=== PATIENT | female | born 1980 | race Caucasian/White ===

== ENCOUNTER → 2019-04-01 | Outpatient (CLI) | payer OTHER ==
[2019-04-01 07:34] LABS: BASOPHIL % 0.7 % (0.0-0.2); EOSINOPHIL # 0.2 10^3/uL (0.0-0.2); EOSINOPHIL % 3.8 % (0.0-5.0); HEMOGLOBIN 14.7 g/dL (12.0-15.0); LYMPHOCYTES # 2.2 10^3/uL (1.0-4.8); LYMPHOCYTES % 38.9 % (24.0-44.0); MEAN CELL HGB 32.9 pg (26-34); MEAN CELL HGB CONCENTRATION 34.9 g/dL (33-37); MEAN CORP VOLUME 94.2 fL (78-100); MEAN PLATELET VOLUME 10.3 fL (7.8-11.0); MONOCYTES # 0.5 10^3/uL (0.3-0.8); MONOCYTES % 9.7 % (5.0-12.0); NEUTROPHIL # 2.6 10^3/uL (1.8-7.7); NEUTROPHILS % 46.7 % (41.0-85.0); RED CELL DISTRIBUTION WIDTH 12.9 % (11.5-14.5); WHITE BLOOD CELL 5.6 10^3/uL (4.5-11.0)
[2019-04-01 08:04] LABS: CARBON DIOXIDE 27.4 mmol/L (20.0-32)
== END | disposition home or self-care (01) ==
LOC: LAB 07:18
PROVIDERS: ATTEND Nurse Practitioner Family
DX: E03.9 Hypothyroidism, unspecified (principal); R73.9 Hyperglycemia, unspecified; R79.89 Other specified abnormal findings of blood chemistry
CPT/HCPCS: 36415; 80053; 80061; 83036; 84439; 84443; 85025

== ENCOUNTER → 2019-08-08 | Outpatient (CLI) | payer OTHER ==
[2019-08-08 10:21] LABS: BASOPHIL % 0.5 % (0.0-0.2); EOSINOPHIL # 0.2 10^3/uL (0.0-0.2); EOSINOPHIL % 2.9 % (0.0-5.0); HEMOGLOBIN 14.4 g/dL (12.0-15.0); LYMPHOCYTES % 34.5 % (24.0-44.0); MEAN CELL HGB 32.7 pg (26-34); MEAN CELL HGB CONCENTRATION 33.8 g/dL (33-37); MEAN CORP VOLUME 96.6 fL (78-100); MEAN PLATELET VOLUME 10.7 fL (7.8-11.0); MONOCYTES # 0.5 10^3/uL (0.3-0.8); MONOCYTES % 7.8 % (5.0-12.0); NEUTROPHIL # 3.2 10^3/uL (1.8-7.7); NEUTROPHILS % 53.8 % (41.0-85.0); RED CELL DISTRIBUTION WIDTH 12.2 % (11.5-14.5); WHITE BLOOD CELL 5.9 10^3/uL (4.5-11.0)
== END | disposition home or self-care (01) ==
LOC: LAB 09:59
PROVIDERS: ATTEND Obstetrics & Gynecology
DX: Z01.419 Encounter for gynecological examination (general) (routine) without abnormal findings (principal); Z13.0 Encounter for screening for diseases of the blood and blood-forming organs and certain disorders involving the immune mechanism
CPT/HCPCS: 36415; 85025

== ENCOUNTER → 2019-08-20 | Outpatient (CLI) | payer OTHER ==
--- NOTE | 2019-08-20 12:09 | DIREP ---
PROCEDURE:Digital Screening Mammogram TECHNIQUE:MLO and CC digital images of each breast are provided. Push-pull implant views are also provided. Computer Assisted Detection (CAD) was utilized. COMPARISON:None. INDICATIONS:SCREENING BASELINE/IMPLANTS BREAST COMPOSITION:There are scattered areas of fibroglandular density. FINDINGS:There are no grouped microcalcifications, masses, or architectural distortions to suggest malignancy. Bilateral breast implants are noted, and they appear to be intact. IMPRESSION:No mammographic evidence of malignancy. RECOMMENDATIONS:Routine Screening Mammography per [employer] guidelines. OVERALL FINAL ASSESSMENT:BI-RADS 1 - Negative Mammogram Note: This facility participates in a mammography screening patient reminder system. Dictated by: Chiki Pickard M.D. on 08/20/2019 at 12:06 PM
== END | disposition home or self-care (01) ==
LOC: RAD 09:52
PROVIDERS: ATTEND Obstetrics & Gynecology
DX: Z12.31 Encounter for screening mammogram for malignant neoplasm of breast (principal)
CPT/HCPCS: 77067